=== PATIENT | male | born 1960 | race Caucasian/White ===

== ENCOUNTER 2016-08-17 13:09 | Emergency (ER) | payer OTHER ==
[~2016-08-17] VITALS: Wt 85.0 kg
[2016-08-17] MEDS ORDERED: CEFTRIAXONE 1 GM/50 ML (PMX) 50 ML IVPB STA (14:52)
[2016-08-17 15:33] LABS: ADD UMIC YES; URINE BILIRUBIN (Dip) NEGATIVE (NEGATIVE); URINE BLOOD (Dip) 1+ (NEGATIVE); URINE KETONES (Dip) 40 (NEGATIVE); URINE LEUKOCYTE ESTERASE (Dip) TRACE (NEGATIVE); URINE NITRITE (Dip) NEGATIVE (NEGATIVE); URINE TOTAL PROTEIN (Dip) TRACE (NEGATIVE); URINE UROBILINOGEN (Dip) 0.2 E.U./dL (0.1-1.0)
[2016-08-17 15:38] LABS: BASOPHILS % 0.2 % (0.0-2.0); EOSINOPHILS % 0.1 % (0.0-7.0); HEMOGLOBIN 14.9 g/dl (14.0-18.0); LYMPHOCYTES # 1.1 10^3/ul (0.8-2.9); LYMPHOCYTES % 8.8 % (15.0-51.0); MEAN CORPUSCULAR HEMOGLOBIN 31.2 pg (29.0-33.0); MEAN CORPUSCULAR HGB CONC 34.6 g/dl (32.0-37.0); MEAN CORPUSCULAR VOLUME 90.1 fl (82.0-101.0); MEAN PLATELET VOLUME 7.3 fl (7.4-10.4); MONOCYTE # 1.3 10^3/ul (0.3-0.9); MONOCYTES % 10.2 % (0.0-11.0); NEUTROPHIL # 10.4 10^3/ul (1.6-7.5); NEUTROPHILS % 80.7 % (39.0-77.0); PLATELET COUNT 91 10^3/UL (140-440); RED BLOOD COUNT 4.77 10^6/ul (4.70-6.10); RED CELL DISTRIBUTION WIDTH 15.3 % (11.5-14.5); UNCORRECTED WBC 12.9 10^3/ul (4.8-10.8); WHITE BLOOD COUNT 12.9 10^3/ul (4.8-10.8)
[2016-08-17 15:40] LABS: CONDITION 1; LH ANALYZER COMMENTS 1
--- NOTE | 2016-08-17 15:40 | RADRPT ---
PROCEDURE: XR foot CLINICAL INDICATION: Pain, swelling, redness. Fever. TECHNIQUE: AP, oblique and lateral views of the right foot were performed. COMPARISON: None. FINDINGS: There is normal mineralization and alignment. No fracture or osseous lesion is identified. The joint s are normal. There are benign, atherosclerotic, vascular calcifications. There is mild soft tissue swelling liv g the dorsum of the foot. No radiopaque foreign body. No radiographic findings of osteomyelitis. IMPRESSION: No osseous abnormality. Mild soft tissue swelling along the dorsum of the foot, and benign, atheros clerotic, vascular calcifications. No radiographic findings of osteomyelitis. RPTAT: PP. .Yolanda Sapp MD, MD Date Time Electronically viewed and signed by .Yolanda Sapp MD, on 08/17/2016 15:40 .F/
[2016-08-17 15:42] LABS: POTASSIUM 3.9 mmol/L (3.5-5.1)
[2016-08-17 15:42] LABS: URINE COLOR YELLOW (YELLOW)
[2016-08-17 15:44] LABS: CREATININE 0.58 mg/dl (0.61-1.24)
[2016-08-17 15:45] LABS: BACTERIA,URINE FEW
[2016-08-17 15:45] LABS: ALBUMIN 4.5 g/dl (3.3-4.9); ALBUMIN/GLOBULIN RATIO 1.32; BILIRUBIN,INDIRECT 0.9 mg/dl (0-1.1); BILIRUBIN,TOTAL 0.9 mg/dl (0.2-1.3); CALCIUM 9.7 mg/dl (8.4-10.2); TOTAL PROTEIN 7.9 g/dl (6.1-8.1)
[2016-08-17 15:57] LABS: PLATELET ESTIMATE PLT APPEAR DECREASED
[2016-08-17] MEDS ORDERED: BACTDS PO (16:40)
[2016-08-17] MEDS ORDERED: CEPH-443 PO (16:40)
[2016-08-17] MEDS ORDERED: IBUP-1542 PO (16:40)
--- NOTE | 2016-08-17 16:49 | ERD ---
ER Documentation Chief Complaint Date/Time DATE: 08/17/16 TIME: 16:45 Chief Complaint RIGHT FOOT PAIN AND SWELLING AND REDNES FROM TRAUMA 1 WEEK AGO HPI This 55-year-old male presents with right foot redness and pain. He believes it started while dropping a block on his foot a week ago. This primarily complains of some redness which is extending up his leg. Said low-grade fever triage. He denies any restricted range of motion weakness. Denies vomiting, shortness breath, chest pain. He has a history of insulin-dependent diabetes ROS All systems reviewed and are negative except as per history of present illness. Medications Home Meds Active Scripts Ibuprofen* (Motrin*) 600 Mg Tab, 600 MG PO Q6, #15 TAB Prov:FRANSISCO LACY MD 08/17/16 Sulfamethoxazole-Trimethoprim* (Bactrim* DS) 800-160 Mg Tab, 1 TAB PO BID for 10 Days, TAB Prov:FRANSISCO LACY MD 08/17/16 Cephalexin* (Keflex*) 500 Mg Capsule, 500 MG PO QID for 10 Days, CAP Prov:FRANSISCO LACY MD 08/17/16 Allergies Allergies: Coded Allergies: No Known Allergy (Unverified , 08/17/16) PMhx/Soc Medical and Surgical Hx: pt denies Surgical Hx History of Surgery: No Anesthesia Reaction: No Hx Neurological Disorder: No Hx Respiratory Disorders: No Hx Cardiac Disorders: No Hx Psychiatric Problems: No Hx Miscellaneous Medical Probl: Yes (diabetes, high BP) Hx Alcohol Use: Yes Hx Substance Use: No Hx Tobacco Use: Yes Smoking Status: Current some day smoker Physical Exam Vitals Vital Signs Date Time Temp Pulse Resp B/P Pulse Ox O2 Delivery O2 Flow Rate FiO2 08/17/16 13:13 100.9 108 22 170/85 98 Physical Exam Const: [] Alert, no apparent distress. Head: Atraumatic Eyes: Normal Conjunctiva ENT: Normal External Ears, Nose and Mouth. Neck: Full range of motion..~ No meningismus. Resp: Clear to auscultation bilaterally Cardio: Regular rate and rhythm, no murmurs Abd: Soft, non tender, non distended. Normal bowel sounds Skin: No petechiae or rashes. There is some warmth and erythema extending from the right big toe across the forefoot up to the dorsum of the right ankle. There is no effusion, deformities, restricted range of motion weakness Back: No midline or flank tenderness Ext: No cyanosis, or edema Neur: Awake and alert Psych: Normal Mood and Affect Result Diagram: 08/17/16 1505 08/17/16 1505 Results 24 hrs Laboratory Tests Test 08/17/16 15:00 08/17/16 15:05 Urine Bacteria FEW Urine Bilirubin NEGATIVE Urine Clarity SLIGHTLY CLOUDY Urine Color YELLOW Urine Glucose 0.5%% Urine Hemoglobin 1+ Urine Ketones 40 Urine Leukocyte Esterase TRACE Urine Microscopic RBC 5-10/HPF Urine Microscopic WBC 5-10/HPF Urine Nitrite NEGATIVE Urine Specific [place] 1.020 Urine Total Protein TRACE Urine Urobilinogen 0.2 E.U./dL Urine pH 6.0 Alanine Aminotransferase (ALT/SGPT) 69IU/L Albumin 4.5g/dl Albumin/Globulin Ratio 1.32 Alkaline Phosphatase 93IU/L Anion Gap 21 Aspartate Amino Transf (AST/SGOT) 57IU/L Basophils # 0.010^3/ul Basophils % 0.2% Blood Morphology Comment Blood Urea Nitrogen 10mg/dl C-Reactive Protein 2.9mg/dl Calcium Level 9.7mg/dl Carbon Dioxide Level 29mmol/L Chloride Level 95mmol/L Creatinine 0.58mg/dl Direct Bilirubin 0.00mg/dl Eosinophils # 0.010^3/ul Eosinophils % 0.1% Erythrocyte Sedimentation Rate 21mm/Hr Globulin 3.40g/dl Glucose Level 168mg/dl Hematocrit 43.0% Hemoglobin 14.9g/dl Indirect Bilirubin 0.9mg/dl Lipase 120U/L Lymphocytes # 1.110^3/ul Lymphocytes % 8.8% Mean Corpuscular Hemoglobin 31.2pg Mean Corpuscular Hemoglobin Concent 34.6g/dl Mean Corpuscular Volume 90.1fl Mean Platelet Volume 7.3fl Monocytes # 1.310^3/ul Monocytes % 10.2% Neutrophils # 10.410^3/ul Neutrophils % 80.7% Nucleated Red Blood Cells # 0.010^3/ul Nucleated Red Blood Cells % 0.0/100WBC Platelet Count 9110^3/UL Platelet Estimate PLT APPEAR DECREASED Potassium Level 3.9mmol/L Red Blood Count 4.7710^6/ul Red Cell Distribution Width 15.3% Sodium Level 141mmol/L Total Bilirubin 0.9mg/dl Total Protein 7.9g/dl White Blood Count 12.910^3/ul Current Medications Medications (Trade) Dose Ordered Sig/Avelina Route PRN Reason Start Time Stop Time Status Last Admin Dose Admin Ceftriaxone Sodium (Rocephin) 50 ml @ 100 mls/hr ONCE STAT IVPB 08/17/16 14:52 08/17/16 15:21 DC 08/17/16 15:20 Procedures/MDM X-ray right foot 3V Interpreted by me: Bones: No fracture Joints: No dislocation Foreign body: None impression-normal right foot x-ray CBC shows leukocytosis of 14 and mild thrombocytopenia. CMP shows no acute abnormalities. ESR is 21. Patient was given Rocephin 1 g IV. Patient presents with cellulitis of his right lower extremity. It appears to be due to contusion a week ago. There is no evidence of fracture, dislocation, osteomyelitis, tenosynovitis, septic arthritis. He will be discharged home with prescription for Bactrim and Keflex instructions for wound check in 2 days. He should otherwise return for vomiting, shortness breath, chest pain, new or worsening symptoms. Patient was also given a tetanus booster. Departure Diagnosis: Primary Impression: Cellulitis Site of cellulitis: extremity Site of cellulitis of extremity: lower extremity Laterality: right Qualified Code: L03.115 - Cellulitis of right lower extremity Condition: Stable Patient Instructions: Cellulitis, Contusion, Foot Additional Instructions: X RAY NORMAL. VAMOS A TRATAR PARA INFECCION. CHEQUE OTRO VEZ 2 NEAL . Cheque otro vez con olvera doctor primario en el proximo neal or regresa para mas o nueva simptomas. FRANSISCO LACY MD Aug 17, 2016 16:49
[2016-08-17 16:59] VITALS: BP 148/76; PULSE 88; RESP 18; TEMP 98.2
[2016-08-17] MEDS ORDERED: DIPHTH/TET/ACEL PERTUSS (ADULT) 0.5 ML VIAL IM* ONE (17:00)
== END 2016-08-17 17:01 | disposition home or self-care (01) ==
LOC: FTE 13:09
DX: L03.115 Cellulitis of right lower limb (principal); F17.210 Nicotine dependence, cigarettes, uncomplicated; E11.9 Type 2 diabetes mellitus without complications; Z23 Encounter for immunization
CPT/HCPCS: 36415; 73630; 80053; 81001; 83690; 85025; 85651; 86140; 87040; 90471; 90715; 96365; J0696; Z7502; 81003

== ENCOUNTER 2016-11-09 13:15 | Emergency (ER) | payer OTHER ==
[~2016-11-09] VITALS: Wt 109.0 kg
[~2016-11-09 13:15] MED LIST: BACTDS PO; CEPH-443 PO; IBUP-1542 PO
[2016-11-09] MEDS ORDERED: HYDROCODONE/APAP (5/325) TAB PO ONE (15:00)
--- NOTE | 2016-11-09 15:54 | RADRPT ---
PROCEDURE: XR ribs and AP chest. CLINICAL INDICATION: trauma, fall off horse TECHNIQUE: AP chest and AP and oblique views of the right ribs were obtained. COMPARISON: None FINDINGS: There is an oblique fracture to the mid right clavicle. The ribs are intact. There are degenerativ e changes of the right AC joint. The lungs are clear. No pleural effusion is identified. IMPRESSION: 1. An acute oblique fracture is identified to the mid diaphysis of the right clavicle with 1-1/2 tereza ne width of cephalad displacement of the medial fracture fragment. RPTAT:AAJJ Physician Connor Date Time Electronically viewed and signed by Carter Villar Physician on 11/09/2016 15:54 NHAN/
--- NOTE | 2016-11-09 15:57 | RADRPT ---
PROCEDURE: XR Cervical Spine. CLINICAL INDICATION: trauma, fall off horse TECHNIQUE: AP, lateral and odontoid views of the cervical spine were performed. The images were re viewed on a PACS workstation. COMPARISON: None. FINDINGS: There is a small C3 spinous process which may be congenital post traumatic or post surgical. Clinic al correlation needed. No acute bony fracture is identified. There is reversal of the cervical cur vature. There are ventral osteophytes off C5. The articular facets and spinous processes are kamryn l. The odontoid process lateral masses are normal. IMPRESSION: 1. No acute cervical spine fracture is identified. 2. Reversal of the cervical curvature. 3. Small C3 spinous process. RPTAT:AAJJ Physician Connor Date Time Electronically viewed and signed by Physician Connor on 11/09/2016 15:57 /
--- NOTE | 2016-11-09 15:57 | RADRPT ---
PROCEDURE: XR Right Shoulder. CLINICAL INDICATION: Trauma due to falling off of a horse. Right shoulder pain. TECHNIQUE: Three views. Frontal internal rotation, frontal external rotation, and scapular Y-view . COMPARISON: No prior study is available for comparison. FINDINGS: There is an acute oblique fracture through the mid shaft of the right clavicle with inferior displac ement measuring approximately 2.5 cm and overriding of the fracture fragments measuring approximatel y 5 cm. There is no other fracture and there is no dislocation. There are degenerative changes of the acromioclavicular joint with joint space narrowing and osteophytes. The articular surfaces are otherwise intact. The soft tissues are normal. There is no lytic or blastic lesion. There is no radiopaque foreign body. IMPRESSION: 1. Acute oblique fracture through the mid shaft of the right clavicle with inferior displacement an d marked overriding. 2. Degenerative changes of the right acromioclavicular joint. 3. Otherwise unremarkable study. RPTAT: QQ .Laith Robert MD, MD Date Time Electronically viewed and signed by .Laith Robert MD, on 11/09/2016 15:57 .R/
--- NOTE | 2016-11-09 15:59 | RADRPT ---
PROCEDURE: XR Chest. CLINICAL INDICATION: Trauma due to falling off of a horse. Chest pain. TECHNIQUE: Single frontal view. COMPARISON: None. FINDINGS: The lungs are clear. The heart size is normal. There is no pleural effusion or pneumothorax. There is an acute inferior displacement and overriding fracture of the right clavicle. IMPRESSION: 1. Acute right clavicle fracture. 2. Otherwise normal chest radiograph. RPTAT: QQ .Laith Robert MD, MD Date Time Electronically viewed and signed by .Laith Robert MD, MD on 11/09/2016 15:59 .R/
--- NOTE | 2016-11-09 16:00 | RADRPT ---
PROCEDURE: Right clavicle radiographs. CLINICAL INDICATION: Trauma due to falling off of a horse. Right shoulder and clavicle pain. TECHNIQUE: 2 views. Frontal and frontal oblique. COMPARISON: No prior study is available for comparison. FINDINGS: There is an acute oblique fracture through the mid shaft of the right clavicle with inferior displac ement measuring approximately 2.5 cm and overriding of the fracture fragments measuring approximatel y 5 cm. There is no other fracture and there is no dislocation. There are degenerative changes of th e acromioclavicular joint with joint space narrowing and osteophytes. The articular surfaces are oth erwise intact. The soft tissues are normal. There is no lytic or blastic lesion. There is no radiopaque foreign body. IMPRESSION: 1. Acute oblique fracture through the mid shaft of the right clavicle with inferior displacement and marked overriding. 2. Degenerative changes of the right acromioclavicular joint. 3. Otherwise unremarkable images of the right clavicle. RPTAT: QQ .Laith Robert MD, MD Date Time Electronically viewed and signed by .Laith Robert MD, on 11/09/2016 16:00 .R/
--- NOTE | 2016-11-09 16:13 | ERD ---
ER Documentation Chief Complaint Date/Time DATE: 11/09/16 TIME: 16:03 Chief Complaint RIGHT ARM PAIN AFTER FALLING OFF HORSE HPI This 56-year-old male who presents to the emergency department today complaining of right arm and neck pain after falling off a horse 3 days ago. 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 Denies any headache, loss of consciousness, nausea or vomiting. He has not taken any medication for the pain. Denies any previous trauma. ROS All systems reviewed and are negative except as per history of present illness. Medications Home Meds Active Scripts Naproxen* (Naprosyn*) 500 Mg Tablet, 500 MG PO BID Y for PAIN AND/OR INFLAMMATION, #30 TAB Prov:JUAN MENDEZ PA-C 11/09/16 Hydrocodone/Acetaminophen (Russell 5-325 Tablet) 1 Each Tablet, 1 TAB PO Q6H Y for PAIN, #15 TAB Prov:JUAN MENDEZ PA-C 11/09/16 Ibuprofen* (Motrin*) 600 Mg Tab, 600 MG PO Q6, #15 TAB Prov:FRANSISCO LACY MD 08/17/16 Sulfamethoxazole-Trimethoprim* (Bactrim* DS) 800-160 Mg Tab, 1 TAB PO BID for 10 Days, TAB Prov:FRANSISCO LACY MD 08/17/16 Cephalexin* (Keflex*) 500 Mg Capsule, 500 MG PO QID for 10 Days, CAP Prov:FRANSISCO LACY MD 08/17/16 Allergies Allergies: Coded Allergies: No Known Allergy (Unverified , 08/17/16) PMhx/Soc History of Surgery: No Anesthesia Reaction: No Hx Neurological Disorder: No Hx Respiratory Disorders: No Hx Cardiac Disorders: Yes (htn) Hx Psychiatric Problems: No Hx Miscellaneous Medical Probl: Yes (diabetes, ) Hx Alcohol Use: Yes Hx Substance Use: No Hx Tobacco Use: Yes Smoking Status: Current every day smoker Physical Exam Vitals Vital Signs Date Time Temp Pulse Resp B/P Pulse Ox O2 Delivery O2 Flow Rate FiO2 11/09/16 13:17 98.0 105 18 187/87 99 Physical Exam Const: No acute distress Head: Atraumatic Eyes: Normal Conjunctiva. ENT: Normal External Ears, Nose and Mouth. Neck: Full range of motion..~ No meningismus. No midline tenderness. Right-sided paraspinal tenderness. Pulses 2+. Distal neurovascular intact. Resp: Clear to auscultation bilaterally. No absent breath sounds. No wheezing. Right-sided ribs mild tenderness palpation Cardio: Regular rate and rhythm, no murmurs Abd: Soft, non tender, non distended. Normal bowel sounds Skin: Multiple areas of ecchymosis over right side of chest, ribs and shoulder Back: No midline or flank tenderness MSK: Right shoulder with no obvious deformity. Major effusion and ecchymosis over anterior aspect of shoulder and chest. Full active range of motion at elbow and wrist. Nontender to palpation humerus, elbow, wrist. Tenderness palpation anterior aspect of right shoulder and clavicle. Neur: Awake and alert Psych: Normal Mood and Affect Results 24 hrs Current Medications Medications (Trade) Dose Ordered Sig/Avelina Route PRN Reason Start Time Stop Time Status Last Admin Dose Admin Acetaminophen/ Hydrocodone Bitart (Russell (5/325)) 1 tab ONCE ONCE PO 11/09/16 15:00 11/09/16 15:01 DC 11/09/16 15:01 DIAGNOSTIC IMAGING REPORT Patient: SELVIN GLEZ : 1960 Age: 56 Sex: M MR #: [id number] DOS: 11/09/16 0000 Ordering MD: JUAN MENDEZ PA-C Location: [facility] Room/Bed: PROCEDURE: XR Cervical Spine. CLINICAL INDICATION: trauma, fall off horse TECHNIQUE: AP, lateral and odontoid views of the cervical spine were performed. The images were reviewed on a PACS workstation. COMPARISON: None. FINDINGS: There is a small C3 spinous process which may be congenital post traumatic or post surgical. Clinical correlation needed. No acute bony fracture is identified. There is reversal of the cervical curvature. There are ventral osteophytes off C5. The articular facets and spinous processes are normal. The odontoid process lateral masses are normal. IMPRESSION: 1. No acute cervical spine fracture is identified. 2. Reversal of the cervical curvature. 3. Small C3 spinous process. RPTAT:AAJJ Physician Connor Date Time Electronically viewed and signed by Carter Villar Physician on 11/09/2016 15:57 JM/ CC: JUAN MENDEZ PA-C DIAGNOSTIC IMAGING REPORT Patient: SELVIN GLEZ : 1960 Age: 56 Sex: M MR #: [id number] DOS: 11/09/16 0000 Ordering MD: JUAN MENDEZ PA-C Location: [facility] Room/Bed: PROCEDURE: XR Chest. CLINICAL INDICATION: Trauma due to falling off of a horse. Chest pain. TECHNIQUE: Single frontal view. COMPARISON: None. FINDINGS: The lungs are clear. The heart size is normal. There is no pleural effusion or pneumothorax. There is an acute inferior displacement and overriding fracture of the right clavicle. IMPRESSION: 1. Acute right clavicle fracture. 2. Otherwise normal chest radiograph. RPTAT: QQ .Fransisco Robert MD, Date Time Electronically viewed and signed by .Fransisco Robert MD, on 11/09/2016 15:59 .R/ CC: JUAN MENDEZ PA-C DIAGNOSTIC IMAGING REPORT Patient: SELVIN GLEZ : 1960 Age: 56 Sex: M MR #: [id number] DOS: 11/09/16 0000 Ordering MD: JUAN MENDEZ PA-C Location: [facility] Room/Bed: PROCEDURE: Right clavicle radiographs. CLINICAL INDICATION: Trauma due to falling off of a horse. Right shoulder and clavicle pain. TECHNIQUE: 2 views. Frontal and frontal oblique. COMPARISON: No prior study is available for comparison. FINDINGS: There is an acute oblique fracture through the mid shaft of the right clavicle with inferior displacement measuring approximately 2.5 cm and overriding of the fracture fragments measuring approximately 5 cm. There is no other fracture and there is no dislocation. There are degenerative changes of the acromioclavicular joint with joint space narrowing and osteophytes. The articular surfaces are otherwise intact. The soft tissues are normal. There is no lytic or blastic lesion. There is no radiopaque foreign body. IMPRESSION: 1. Acute oblique fracture through the mid shaft of the right clavicle with inferior displacement and marked overriding. 2. Degenerative changes of the right acromioclavicular joint. 3. Otherwise unremarkable images of the right clavicle. RPTAT: QQ .Fransisco Robert MD, Date Time Electronically viewed and signed by .Fransisco Robert MD, MD on 11/09/2016 16:00 .R/ CC: JUAN MENDEZ PA-C DIAGNOSTIC IMAGING REPORT Patient: SELVIN GLEZ : 1960 Age: 56 Sex: M MR #: [id number] DOS: 11/09/16 0000 Ordering MD: JUAN MENDEZ PA-C Location: [facility] Room/Bed: PROCEDURE: XR ribs and AP chest. CLINICAL INDICATION: trauma, fall off horse TECHNIQUE: AP chest and AP and oblique views of the right ribs were obtained. COMPARISON: None FINDINGS: There is an oblique fracture to the mid right clavicle. The ribs are intact. There are degenerative changes of the right AC joint. The lungs are clear. No pleural effusion is identified. IMPRESSION: 1. An acute oblique fracture is identified to the mid diaphysis of the right clavicle with 1-1/2 bone width of cephalad displacement of the medial fracture fragment. RPTAT:AAJJ Physician Connor Date Time Electronically viewed and signed by Carter Villar Physician on 11/09/2016 15:54 JM/ CC: JUAN MENDEZ PA-C DIAGNOSTIC IMAGING REPORT Patient: SELVIN GLEZ : 1960 Age: 56 Sex: M MR #: [id number] DOS: 11/09/16 0000 Ordering MD: JUAN MENDEZ PA-C Location: [facility] Room/Bed: PROCEDURE: XR Right Shoulder. CLINICAL INDICATION: Trauma due to falling off of a horse. Right shoulder pain. TECHNIQUE: Three views. Frontal internal rotation, frontal external rotation , and scapular Y-view. COMPARISON: No prior study is available for comparison. FINDINGS: There is an acute oblique fracture through the mid shaft of the right clavicle with inferior displacement measuring approximately 2.5 cm and overriding of the fracture fragments measuring approximately 5 cm. There is no other fracture and there is no dislocation. There are degenerative changes of the acromioclavicular joint with joint space narrowing and osteophytes. The articular surfaces are otherwise intact. The soft tissues are normal. There is no lytic or blastic lesion. There is no radiopaque foreign body. IMPRESSION: 1. Acute oblique fracture through the mid shaft of the right clavicle with inferior displacement and marked overriding. 2. Degenerative changes of the right acromioclavicular joint. 3. Otherwise unremarkable study. RPTAT: QQ .Fransisco Robert MD, MD Date Time Electronically viewed and signed by .Fransisco Robert MD, MD on 11/09/2016 15:57 .R/ CC: JUAN MENDEZ PA-C Procedures/[facility] This a 56-year-old male who presents to the emergency department today complaining of some right arm pain after falling off a horse 3 days ago. Patient had a significant amount of ecchymosis on the right side of his body and therefore did obtain images. Per the radiology report images of the right shoulder and clavicle show an acute oblique fracture through the midshaft of the right clavicle with inferior displacement and marked overriding. There are degenerative changes of the right AC joint. Otherwise unremarkable. Soft tissues are normal. Dedicated rib series and chest x-ray shows no pleural effusion or pneumothorax. Ribs are unremarkable. Cervical spine images show no acute cervical spine fracture dislocation. There is reversal of the cervical curvature. There are ventral osteophytes of C5. There is a small C3 process. Patient symptoms at this time most consistent with clavicle fracture and contusions secondary to fall off his horse. I have explained the results to the patient. I explained to the patient that he needs to follow-up with his primary care physician for referral to orthopedics. Patient understood Patient was given Russell here in the emergency department for his pain. I did give him a prescription for a short course for home as well as Naprosyn. He was instructed to apply ice to the area. Patient was placed in a sling and instructed to stay in it until further evaluation by clinical studies specialist. Patient understood. At this time the patient is stable for discharge and outpatient management. Patient should follow up with their PCP in the next 1-2 days. They may return to the emergency department sooner for any persistent or worsening of symptoms. Patient understood and agreed with the plan. Departure Diagnosis: Primary Impression: Clavicle fracture Encounter type: initial encounter Clavicle location: shaft Fracture type: closed Fracture alignment: displaced Laterality: right Qualified Code: S42.021A - Closed displaced fracture of shaft of right clavicle, initial encounter Additional Impression: Fall Encounter type: initial encounter Qualified Code: W19.XXXA - Fall, initial encounter Condition: JUAN Olivia PA-C November 09, 2016 16:13
[2016-11-09] MEDS ORDERED: NAPR-260 PO (16:16)
[2016-11-09] MEDS ORDERED: HYDR-906 PO (16:16)
[2016-11-09 16:46] VITALS: BP 140/88; PULSE 100; RESP 16; TEMP 99.1
== END 2016-11-09 16:47 | disposition home or self-care (01) ==
LOC: FTE 13:15
DX: S42.021A Displaced fracture of shaft of right clavicle, initial encounter for closed fracture (principal); I10 Essential (primary) hypertension; E11.9 Type 2 diabetes mellitus without complications; F17.210 Nicotine dependence, cigarettes, uncomplicated; V80.010A Animal-rider injured by fall from or being thrown from horse in noncollision accident, initial encounter
CPT/HCPCS: 71010; 71100; 72040; 73000; 73030; Z7502; Z7610